=== PATIENT | female | born 1950 | race Two or more races ===

== ENCOUNTER 2017-09-29 18:58 | Emergency (ER) | payer MEDICARE, MEDICAID ==
[~2017-09-29] VITALS: Ht 160 cm; Wt 63.5 kg
[~2017-09-29 18:58] MED LIST: ASPI-618 PO; Blood Sugar Diagnostic VI; ERGO400C PO; GABA-536 PO; INSU3INS6 SUBCUT; LEDI1TAB PO; SIMV20TA2 PO
--- NOTE | 2017-09-29 19:52 | NUR ---
DENIES PT REQUESTS PAIN MEDICATION NOT BE GIVENHEERE SHE WANTS TO GO HOME AND TAKE MED AT HOME - PAIN AT "9" REPORTED BUT PT REFUSES MED HERE
--- NOTE | 2017-09-29 20:01 | NUR ---
Patient discharged to home in stable conditon. Written and verbal after care instructions given. Patient verbalizes understanding of instructions.[employer]
[2017-09-29 20:03] VITALS: BP 150/78
== END 2017-09-29 20:07 | disposition home or self-care (01) ==
LOC: ER 18:58
DX: M62.838 Other muscle spasm (principal); M54.2 Cervicalgia; Z79.82 Long term (current) use of aspirin; Z79.4 Long term (current) use of insulin; E11.40 Type 2 diabetes mellitus with diabetic neuropathy, unspecified; Z90.710 Acquired absence of both cervix and uterus
CPT/HCPCS: 99283; A4663

== ENCOUNTER 2017-10-09 18:20 | Emergency (ER) | payer MEDICARE, MEDICAID ==
[~2017-10-09] VITALS: Ht 160 cm; Wt 63.5 kg
[2017-10-09] MEDS ORDERED: LANTUS 100 UNIT/ML (18:31)
[2017-10-09] MEDS ORDERED: LINZESS 145 MCG CAPSULE (18:31)
[2017-10-09] MEDS ORDERED: GABAPENTIN 600 MG (18:31)
[2017-10-09] MEDS ORDERED: ALPRAZOLAM 1 MG (18:31)
--- NOTE | 2017-10-09 18:53 | NUR ---
Patient discharged to home in stable conditon. Written and verbal after care instructions given. Patient verbalizes understanding of instructions.
== END 2017-10-09 18:54 | disposition home or self-care (01) ==
LOC: ER 18:26
DX: M79.652 Pain in left thigh (principal); E11.40 Type 2 diabetes mellitus with diabetic neuropathy, unspecified; Z79.4 Long term (current) use of insulin; Z79.82 Long term (current) use of aspirin; Z90.710 Acquired absence of both cervix and uterus
CPT/HCPCS: 99283; A4663

== ENCOUNTER 2018-11-19 13:31 | Emergency (ER) | payer MEDICARE, MEDICAID ==
[~2018-11-19] VITALS: Ht 160 cm; Wt 63.5 kg
[~2018-11-19 13:31] MED LIST changes: +ALPRAZOLAM 1 MG; +GABAPENTIN 600 MG; +LANTUS 100 UNIT/ML; -LEDI1TAB PO; +LINZESS 145 MCG CAPSULE
[2018-11-19 14:20] LABS: BASOPHILS # (AUTO) 0.1 K/uL (0.0-8.0); BASOPHILS % (AUTO) 0.9 % (0.0-2.0); EOSINOPHILS # (AUTO) 0.1 K/uL (0.0-0.7); HEMATOCRIT 44.4 % (31.2-41.9); HEMOGLOBIN 15.5 g/dL (10.9-14.3); LYMPHOCYTES # (AUTO) 2.4 K/uL (20.0-40.0); LYMPHOCYTES % (AUTO) 38.7 % (20.5-51.5); MEAN CORPUSCULAR HEMOGLOBIN 31.5 uug (24.7-32.8); MEAN CORPUSCULAR HGB CONC 35 g/dL (32.3-35.6); MEAN CORPUSCULAR VOLUME 90.1 fL (75.5-95.3); MONOCYTES # (AUTO) 0.5 K/uL (2.0-10.0); MONOCYTES % (AUTO) 7.7 % (0.0-11.0); NEUTROPHILS # (AUTO) 3.1 K/uL (1.8-8.9); NEUTROPHILS % (AUTO) 50.7 % (38.5-71.5); PLATELET COUNT (AUTO) 118 K/uL (179-408); RED BLOOD CELL COUNT(AUTO) 4.93 MIL/uL (3.63-4.92); WHITE BLOOD COUNT (AUTO) 6.1 K/uL (3.8-11.8)
[2018-11-19 14:28] LABS: CREATININE 0.8 mg/dL (0.6-1.3); POTASSIUM 4.6 mmol/L (3.5-5.1)
[2018-11-19] MEDS ORDERED: IOHEXOL 350 100 ML INFUS..BTL ONE (15:14)
[2018-11-19] MEDS ORDERED: SWABABLE VALVE TRANSFER SET EA MC ONE (15:15)
[2018-11-19] MEDS ORDERED: IV NORMAL SALINE 250 ML IV ONE (15:15)
--- NOTE | 2018-11-19 17:17 | NUR ---
IV removed. Catheter intact and site benign. Pressure and 4x4 gauze applied to site. No bleeding noted.
--- NOTE | 2018-11-19 17:17 | NUR ---
Patient discharged to home in stable conditon. Written and verbal after care instructions given. Patient verbalizes understanding of instructions.
== END 2018-11-19 17:18 | disposition home or self-care (01) ==
LOC: ER 13:36
DX: R42 Dizziness and giddiness (principal); H93.11 Tinnitus, right ear; E11.9 Type 2 diabetes mellitus without complications; Z90.710 Acquired absence of both cervix and uterus; Z79.82 Long term (current) use of aspirin; Z79.4 Long term (current) use of insulin; Z79.899 Other long term (current) drug therapy
CPT/HCPCS: 36415; 70450; 70496; 70498; 80048; 85025; 93005; 99284; Q9967; A4663; J7050

== ENCOUNTER 2019-03-03 19:20 | Emergency (ER) | payer MEDICARE, MEDICAID ==
[~2019-03-03] VITALS: Ht 160 cm; Wt 63.0 kg
[2019-03-03] MEDS ORDERED: ATORVASTATIN 40 MG TABLET (19:31)
[2019-03-03] MEDS ORDERED: IBU 600 MG TABLET (19:31)
--- NOTE | 2019-03-03 19:49 | NUR ---
Pt. up to use restroom, ambulates w/ steady gait, urine specimen collected and sent to lab,
[2019-03-03 19:50] LABS: *BILIRUBIN,URIN NEGATIVE (NEGATIVE); *BLOOD, URINE 2+ (NEGATIVE); *CLARITY,URINE SLIGHTLY CLOUDY (CLEAR); *COLOR,URINE YELLOW (YELLOW); *KETONES,URINE NEGATIVE (NEGATIVE); *UROBILINOGEN,URINE 0.2 E.U./dl (NORMAL); LEUKOCYTE ESTERASE ,URINE 1+ (NEGATIVE); NITRITE, URINE NEGATIVE (NEGATIVE); PH,URINE 5.5 (5.0-8.0); UGLUCOSE NEGATIVE (NEGATIVE)
[2019-03-03 19:57] LABS: BACTERIA,URINE FEW /HPF (NONE SEEN); RBC,URINE 20-50 /HPF (0-3); SQUAMOUS EPITHELIAL CELL,UR MODERATE /HPF (NONE SEEN); WBC,URINE 50-80 /HPF (0-3)
[2019-03-03 19:58] LABS: MUCUS,URINE MODERATE /LPF (0-FEW)
[2019-03-03] MEDS ORDERED: CEphaleXIN 500 MG CAPSULE PO ONE (20:15)
[2019-03-03] MEDS ORDERED: CEphaleXIN 500 MG CAPSULE ONE (20:17)
--- NOTE | 2019-03-03 20:21 | NUR ---
Patient discharged to home in stable conditon. Written and verbal after care instructions given. Patient verbalizes understanding of instructions. Pt. d/c w/ prescription per MD order, d/c papers signed, all belongings w/ pt., ID band removed, ambulated off unit w/ steady gait, NAD
== END 2019-03-03 20:23 | disposition home or self-care (01) ==
LOC: ER 19:22
DX: N39.0 Urinary tract infection, site not specified (principal); E11.9 Type 2 diabetes mellitus without complications; Z90.710 Acquired absence of both cervix and uterus; Z79.82 Long term (current) use of aspirin; Z79.4 Long term (current) use of insulin; Z79.899 Other long term (current) drug therapy
CPT/HCPCS: A4663

== ENCOUNTER 2019-06-14 19:14 | Emergency (ER) | payer MEDICARE, MEDICAID ==
[~2019-06-14] VITALS: Ht 160 cm; Wt 62.6 kg
[~2019-06-14 19:14] MED LIST changes: +ATORVASTATIN 40 MG TABLET; +IBU 600 MG TABLET
--- NOTE | 2019-06-14 19:35 | NUR ---
Patient ambulated with stable gait. A/Ox4. Speech is clear, speaks in complete sentences. No neuro deficits. Patient came for c/o right ear pain since last night. Respiratory even and unlabored no cough or sob. Patient denies any sorethroat.
--- NOTE | 2019-06-14 19:42 | NUR ---
ERMD at bedside for MSE
[2019-06-14] MEDS ORDERED: DOCUSATE SODIUM 100 MG/10 ML LIQUID UDC OT ONE (19:45)
[2019-06-14] MEDS ORDERED: DOCUSATE SODIUM 100 MG/10 ML LIQUID UDC ONE (19:50)
--- NOTE | 2019-06-14 21:03 | NUR ---
Patient ambulated with stable gait.
--- NOTE | 2019-06-14 21:03 | NUR ---
Patient discharged to home in stable conditon. Written and verbal after care instructions given. Patient verbalizes understanding of instructions.
[2019-06-14 21:05] VITALS: BP 143/72
== END 2019-06-14 21:07 | disposition home or self-care (01) ==
LOC: ER 19:17
DX: H61.21 Impacted cerumen, right ear (principal); E11.9 Type 2 diabetes mellitus without complications; Z90.710 Acquired absence of both cervix and uterus; Z79.4 Long term (current) use of insulin; Z79.82 Long term (current) use of aspirin; Z79.899 Other long term (current) drug therapy
CPT/HCPCS: A4663

== ENCOUNTER 2019-07-28 17:21 | Emergency (ER) | payer MEDICARE, MEDICAID ==
[~2019-07-28] VITALS: Ht 160 cm; Wt 63.5 kg
[~2019-07-28 17:21] MED LIST changes: -ALPRAZOLAM 1 MG; -SIMV20TA2 PO
[2019-07-28 17:38] LABS: *BILIRUBIN,URIN NEGATIVE (NEGATIVE); *BLOOD, URINE NEGATIVE (NEGATIVE); *COLOR,URINE YELLOW (YELLOW); *KETONES,URINE NEGATIVE (NEGATIVE); *UROBILINOGEN,URINE 0.2 E.U./dl (NORMAL); LEUKOCYTE ESTERASE ,URINE 1+ (NEGATIVE); NITRITE, URINE NEGATIVE (NEGATIVE); PH,URINE 5.5 (5.0-8.0); UGLUCOSE NEGATIVE (NEGATIVE)
[2019-07-28 17:39] LABS: *CLARITY,URINE HAZY (CLEAR)
[2019-07-28 17:43] LABS: BACTERIA,URINE FEW /HPF (NONE SEEN); MUCUS,URINE FEW /LPF (0-FEW); RBC,URINE 0-3 /HPF (0-3); SQUAMOUS EPITHELIAL CELL,UR FEW /HPF (NONE SEEN); WBC,URINE 20-50 /HPF (0-3)
[2019-07-28] MEDS ORDERED: CEFTRIAXONE 1 G VIAL IM ONE (18:15)
[2019-07-28] MEDS ORDERED: IV NORMAL SALINE 1000 ML BAG IV ONE (18:15)
[2019-07-28 18:27] LABS: BASOPHILS % (AUTO) 0.5 % (0.0-2.0); EOSINOPHILS # (AUTO) 0.1 K/uL (0.0-0.7); EOSINOPHILS % (AUTO) 2.2 % (0.0-7.0); HEMATOCRIT 39.2 % (31.2-41.9); HEMOGLOBIN 13.2 g/dL (10.9-14.3); LYMPHOCYTES # (AUTO) 2.3 K/uL (20.0-40.0); LYMPHOCYTES % (AUTO) 40.9 % (20.5-51.5); MEAN CORPUSCULAR HEMOGLOBIN 31.1 uug (24.7-32.8); MEAN CORPUSCULAR HGB CONC 34 g/dL (32.3-35.6); MEAN CORPUSCULAR VOLUME 92.7 fL (75.5-95.3); MONOCYTES # (AUTO) 0.4 K/uL (2.0-10.0); MONOCYTES % (AUTO) 6.4 % (0.0-11.0); NEUTROPHILS # (AUTO) 2.9 K/uL (1.8-8.9); PLATELET COUNT (AUTO) 107 K/uL (179-408); RED BLOOD CELL COUNT(AUTO) 4.23 MIL/uL (3.63-4.92); WHITE BLOOD COUNT (AUTO) 5.7 K/uL (3.8-11.8)
[2019-07-28] MEDS ORDERED: CEFTRIAXONE 1 G in IV DEXTROSE 5% 50 ML IV ONE (18:30)
[2019-07-28] MEDS ORDERED: CEFTRIAXONE /D5W 50ML IVPB **ER PYXIS IV ONE (18:34)
[2019-07-28 18:38] LABS: POTASSIUM 4.2 mmol/L (3.5-5.1)
[2019-07-28 18:44] LABS: BILIRUBIN,DIRECT 0.1 mg/dL (0.0-0.2); BILIRUBIN,TOTAL 0.3 mg/dL (0.2-1.0); TOTAL PROTEIN, SERUM 7.2 g/dL (6.4-8.2)
--- NOTE | 2019-07-28 19:29 | NUR ---
Patient discharged to home in stable conditon. Written and verbal after care instructions given. Patient verbalizes understanding of instructions.
[2019-07-28 19:32] VITALS: BP 118/65
== END 2019-07-28 19:32 | disposition home or self-care (01) ==
LOC: ER 17:28
DX: N39.0 Urinary tract infection, site not specified (principal); E11.9 Type 2 diabetes mellitus without complications; Z90.710 Acquired absence of both cervix and uterus; Z79.4 Long term (current) use of insulin; Z79.899 Other long term (current) drug therapy; Z79.82 Long term (current) use of aspirin
CPT/HCPCS: 36415; 80048; 80076; 81000; 81001; 83605; 85025; 87040 ×2; 87086; 96365; 99283; J0696; A4663; J7030

== ENCOUNTER 2019-11-15 14:58 | Emergency (ER) | payer MEDICARE, OTHER ==
[~2019-11-15] VITALS: Ht 160 cm; Wt 64.9 kg
[~2019-11-15 14:58] MED LIST changes: -ASPI-618 PO; -ATORVASTATIN 40 MG TABLET; -ERGO400C PO; -GABAPENTIN 600 MG; -IBU 600 MG TABLET; -LANTUS 100 UNIT/ML; -LINZESS 145 MCG CAPSULE
[2019-11-15] MEDS ORDERED: HYDROMORPHONE 2 MG/1 ML DISP.SYRIN ONE (15:29)
[2019-11-15] MEDS ORDERED: ONDANSETRON 4 MG/2 ML VIAL ONE (15:29)
--- NOTE | 2019-11-15 15:30 | NUR ---
[employer] assumes care- 1st contact with patient, AOx4, calm & breathing easily, for discharge per Dr Urias to home after IM Dilaudid. Patient's adult daughter is the stock driver & will be bringing the patient home. Patient is c/o low back pains radiating to LLE. Patient is seen ambulating with slow steady gait in the room.
[2019-11-15] MEDS: HYDROMORPHONE 1 MG/1 ML DISP.SYRIN IM ONE (15:32)
[2019-11-15] MEDS: ONDANSETRON 4 MG/2 ML VIAL IV ONE (15:32)
--- NOTE | 2019-11-15 15:34 | NUR ---
Patient discharged to home in stable conditon & slow steady gait. Written and verbal after care instructions given to patient and daughter. Patient and family verbalized understanding & compliance of instructions.
== END 2019-11-15 15:36 | disposition home or self-care (01) ==
LOC: ER 14:58
DX: M54.42 Lumbago with sciatica, left side (principal); E11.9 Type 2 diabetes mellitus without complications; Z90.710 Acquired absence of both cervix and uterus; Z79.4 Long term (current) use of insulin; Z79.899 Other long term (current) drug therapy
CPT/HCPCS: 96372 ×2; 99283; J1170; J2405; A4663

== ENCOUNTER 2021-01-17 23:04 | Emergency (ER) | payer MEDICARE, OTHER ==
[~2021-01-17] VITALS: Ht 160 cm; Wt 63.0 kg
--- NOTE | 2021-01-17 23:20 | NUR ---
Patient presents to ED for Sciatica pain. She is a frequent visitor - not homeless - but has chronic pain issues. She is scheduled to get back surgery later this month. Normal sinus rhythm - afebrile. Lungs clear. Only complaint is the pain in her lower back.
[2021-01-17] MEDS ORDERED: HYDR-3980 PO (23:23)
[2021-01-17] MEDS ORDERED: ONDA4TAB5 PO (23:23)
[2021-01-17] MEDS ORDERED: KETOROLAC TROMETHAMINE 30 MG INJ IM ONE (23:30)
[2021-01-17] MEDS ORDERED: KETOROLAC TROMETHAMINE 30 MG INJ ONE (23:31)
[2021-01-17 23:36] VITALS: BP 130/88
== END 2021-01-17 23:33 | disposition home or self-care (01) ==
LOC: ER 23:04
DX: M54.32 Sciatica, left side (principal); G89.29 Other chronic pain; M54.2 Cervicalgia; Z87.891 Personal history of nicotine dependence; E11.9 Type 2 diabetes mellitus without complications; Z79.84 Long term (current) use of oral hypoglycemic drugs; M54.9 Dorsalgia, unspecified
CPT/HCPCS: 96372; 99283; J1885; A4663